=== PATIENT | female | born 1975 | race African-American/Black ===

== ENCOUNTER 2017-09-17 09:48 | Emergency (ER) | payer BC ==
--- NOTE | 2017-09-17 10:55 | RAD ---
RADIOGRAPH CHEST 2 VIEWS: HISTORY: 41-year-old female with cough for three days. FINDINGS: The lungs are clear. The cardiomediastinal silhouette and hilar shadows are normal. There is no ple ural effusion. The osseous structures appear normal. There is no pneumothorax. IMPRESSION: Normal. javier POS: [facility]
== END 2017-09-17 11:47 | disposition home or self-care (01) ==
LOC: ERS 09:48
DX: J06.9 Acute upper respiratory infection, unspecified (principal); F17.210 Nicotine dependence, cigarettes, uncomplicated
CPT/HCPCS: 71020; 87081; 87430

== ENCOUNTER 2018-01-11 08:03 | Emergency (ER) | payer BC ==
[2018-01-11 08:54] LABS: #Basophils 0.1 thou/uL (0.0-0.2); #Eosinphils 0.2 thou/uL (0.0-0.7); #Lymphocytes 3.3 thou/uL (1.20-3.40); #Monocytes 0.5 thou/uL (0.11-0.59); #Neutrophils 5.4 thou/uL (1.40-6.50); %Eosinophils 1.8 % (0.0-10.0); %Lymphocytes 34.8 % (21.0-51.0); %Monocytes 5.7 % (0.0-10.0); %Neutrophils 56.6 % (42.0-75.0); Hemoglobin 13.4 g/dL (12.0-16.0); Mean Corpuscular HGB CONC 32.4 g/dL (32.0-36.0); Mean Corpuscular Hemoglobin 29.4 pg (27.0-31.0); Mean Corpuscular Volume 90.6 fl (81.0-99.0); Mean Platelet Volume 7.8 fL (7.4-10.4); Platelet Count 269 thou/uL (130-400); RBC Distribution Width 11.2 % (11.5-14.5); Red Blood Cell (RBC) Count 4.58 mill/uL (4.20-5.40); White Blood Cell (WBC) Count 9.5 thou/uL (4.8-10.8)
[2018-01-11 09:13] LABS: ALT (SGPT) 8 U/L (8-55); AST (SGOT) 14 U/L (5-34); Albumin 4.3 g/dL (3.5-5.0); Alkaline Phosphatase 79 U/L (40-150); Anion Gap 10 mmol/L (10-20); BUN (Urea Nitrogen) 6 mg/dL (7.0-18.7); Bilirubin, Total 0.6 mg/dL (0.2-1.2); Calc. Creatinine Clearance 0 mL/min (70-130); Calcium 9.8 mg/dL (7.8-10.44); Carbon Dioxide 27 mmol/L (22-29); Chloride 104 mmol/L (98-107); Estimated GFR-MDRD 90; Globulin 2.9 g/dL (2.4-3.5); Glucose 90 mg/dL (70-105); Potassium 3.9 mmol/L (3.5-5.1); Protein, Total 7.2 g/dL (6.0-8.3); Sodium 137 mmol/L (136-145)
[2018-01-11] MEDS ORDERED: Acetaminophen 500 MG TAB ONE (09:37)
[2018-01-11] MEDS ORDERED: Ketorolac Tromethamine 30 MG/ML VIAL ONE (09:37)
--- NOTE | 2018-01-11 09:41 | CT ---
CT OF HEAD NONCONTRAST: INDICATION: Headache. COMPARISON: No prior imaging comparison. FINDINGS: Ventricular system is normal in size. There is no acute intracranial hemorrhage, mass effect, or mid line shift. The calvarium is intact. No opacification of the imaged paranasal sinuses of significan ce as visualized. IMPRESSION: No acute intracranial hemorrhage or mass effect. POS: [facility]
[2018-01-11] MEDS ORDERED: diphenhydrAMINE 50 MG/ML VIAL ONE (09:55)
[2018-01-11] MEDS ORDERED: Metoclopramide HCl 10 MG/2 ML VIAL ONE (09:55)
== END 2018-01-11 11:11 | disposition home or self-care (01) ==
LOC: ERS 08:03
DX: R51 Headache (principal); F32.9 Major depressive disorder, single episode, unspecified; F17.210 Nicotine dependence, cigarettes, uncomplicated
CPT/HCPCS: 36415; 70450; 80053; 85025; 96365; 96375; J1200; J1885; J2765